=== PATIENT | female | born 2000 | race Caucasian/White ===

== ENCOUNTER 2019-01-19 17:23 | Inpatient (IN) | payer MEDICAID ==
[~2019-01-19] VITALS: Ht 160 cm; Wt 87.1 kg
[2019-01-19] MEDS ORDERED: LR 1,000 ML IV SCH (18:17)
[2019-01-19] MEDS ORDERED: OXYTOCIN/0.9 % SODIUM CHLORIDE 1,000 ML IV SCH (18:17)
[2019-01-19 18:27] VITALS: BP_SYST 127
[2019-01-19] MEDS ORDERED: AMPICILLIN SODIUM 2 GM in NS 100 ML IV ONE (18:30)
[2019-01-19] MEDS ORDERED: NALBUPHINE HCL 10 MG/ML AMP IM PRN (18:30)
[2019-01-19] MEDS ORDERED: NALBUPHINE HCL 10 MG/ML AMP IVP PRN (18:30)
[2019-01-19 19:32] LABS: BASOPHILS % (AUTO) 0.3 % (0.0-2.0); EOSINOPHILS % (AUTO) 0.5 % (0.0-4.0); HEMATOCRIT 31.3 % (36-48); HEMOGLOBIN 10.4 g/dL (12.0-16.0); LYMPHOCYTES % (AUTO) 18.2 % (20.5-51.5); MEAN CORPUSCULAR HEMOGLOBIN 27 pg (27-31); MEAN CORPUSCULAR HGB CONC 33 % (32-36); MEAN CORPUSCULAR VOLUME 81 fL (79.0-98.0); MONOCYTES % (AUTO) 9.2 % (1.7-9.3); NEUTROPHILS # (AUTO) 7.4 K/uL (1.8-7.7); NEUTROPHILS % (AUTO) 71.8 % (40.0-70.0); PLATELET COUNT (AUTO) 213 K/uL (130-430); RED BLOOD CELL COUNT(AUTO) 3.85 MIL/uL (4.2-6.2); WHITE BLOOD COUNT (AUTO) 10.3 K/uL (4.5-11.0)
[2019-01-19 19:33] LABS: EOSINOPHILS # (AUTO) 0.1 K/uL (0.0-0.4); LYMPHOCYTES # (AUTO) 1.9 K/uL (1.0-5.5); MONOCYTES # (AUTO) 0.9 K/uL (0.0-1.0)
[2019-01-19] MEDS ORDERED: ROPIVACAINE HCL/PF 0.2% 200 ML ONE (22:36)
[2019-01-19] MEDS ORDERED: fentaNYL CITRATE/PF 100 MCG/2 ML AMP ONE (22:36)
[2019-01-19] MEDS ORDERED: LR 500 ML IV ONE (23:27)
[2019-01-19] MEDS ORDERED: FENT2mCg/mL-ROPIVA0.2%/NS EPID 200 ML EP SCH (23:30)
[2019-01-20] MEDS ORDERED: DIPHENHYDRAMINE INJ 50 MG/ML VIAL ONE (00:14)
[2019-01-20] MEDS ORDERED: DIPHENHYDRAMINE INJ 50 MG/ML VIAL IVP ONE (00:15)
[2019-01-20] MEDS: AMPICILLIN SODIUM 1 GM in NS 50 ML IV SCH ×6 (04:00→16:00)
[2019-01-20] MEDS ORDERED: ROPIVACAINE HCL/PF 0.2% 100 ML ONE (12:32)
[2019-01-20] MEDS ORDERED: fentaNYL CITRATE/PF 100 MCG/2 ML AMP ONE (12:58)
[2019-01-20] MEDS ORDERED: METHYLERGONOVINE MALEATE 0.2 MG/ML AMP ONE (18:44)
[2019-01-20] MEDS ORDERED: LANOLIN 7 GM OINT. TP PRN (18:45)
[2019-01-20] MEDS ORDERED: DERMOPLAST SPRAY TP PRN (18:45)
[2019-01-20] MEDS ORDERED: HYDROcodone/ACETAMIN 5-325 MG TAB (NORCO/ VICODIN) PO PRN ×2 (18:45)
[2019-01-20] MEDS ORDERED: OXYTOCIN/0.9 % SODIUM CHLORIDE 1,000 ML IV ONE (18:45)
[2019-01-20] MEDS ORDERED: OXYTOCIN/0.9 % SODIUM CHLORIDE 1,000 ML IV SCH (18:45)
[2019-01-20] MEDS ORDERED: ANUSOL 1 EA SUPP.RECT (PREPARATION H) RC PRN (18:45)
[2019-01-20] MEDS ORDERED: HYDROCORTISONE 0.5%, 28.35 GM TOPICAL CREAM TP PRN (18:45)
[2019-01-20] MEDS ORDERED: WITCH HAZEL LEAF 1 MED.PAD MED.PAD TP PRN (18:45)
[2019-01-20] MEDS ORDERED: METHYLERGONOVINE MALEATE 0.2 MG TABLET PO PRN (18:45)
[2019-01-20] MEDS ORDERED: TEMAZEPAM 15 MG CAPSULE PO PRN (21:00)
[2019-01-20] MEDS: DOCUSATE SODIUM 100 MG CAPSULE PO PRN (23:57)
[2019-01-20] MEDS: IBUPROFEN 600 MG TABLET PO PRN (23:58)
[2019-01-21 06:03] LABS: BASOPHILS # (AUTO) 0.1 K/uL (0.0-0.2); BASOPHILS % (AUTO) 0.4 % (0.0-2.0); EOSINOPHILS # (AUTO) 0.1 K/uL (0.0-0.4); EOSINOPHILS % (AUTO) 0.3 % (0.0-4.0); HEMATOCRIT 28.1 % (36-48); HEMOGLOBIN 9.2 g/dL (12.0-16.0); LYMPHOCYTES # (AUTO) 1.8 K/uL (1.0-5.5); MEAN CORPUSCULAR HEMOGLOBIN 27 pg (27-31); MEAN CORPUSCULAR HGB CONC 33 % (32-36); MEAN CORPUSCULAR VOLUME 81 fL (79.0-98.0); MONOCYTES # (AUTO) 1.9 K/uL (0.0-1.0); MONOCYTES % (AUTO) 9.4 % (1.7-9.3); NEUTROPHILS % (AUTO) 80.9 % (40.0-70.0); PLATELET COUNT (AUTO) 183 K/uL (130-430); RED BLOOD CELL COUNT(AUTO) 3.48 MIL/uL (4.2-6.2); WHITE BLOOD COUNT (AUTO) 19.8 K/uL (4.5-11.0)
[2019-01-21] MEDS: IBUPROFEN 600 MG TABLET PO PRN ×3 (06:31→17:55)
[2019-01-21] MEDS: DOCUSATE SODIUM 100 MG CAPSULE PO PRN ×2 (06:31→09:10)
[2019-01-21] MEDS ORDERED: MINERAL OIL 30 ML UDC PO ONE (15:33)
[2019-01-21] MEDS ORDERED: LIDOCAINE PF 1% 30ML(POUR BTL) INJ ONE (15:33)
[2019-01-21] MEDS ORDERED: BUPIVACAINE /PF 0.5% 30 ML VIAL INJ ONE (15:35)
== END 2019-01-21 19:25 | disposition home or self-care (01) | DRG 560 ==
LOC: OBSVTOIN 17:23 → SPU 17:23
PROVIDERS: ADMIT Obstetrics & Gynecology; ATTEND Obstetrics & Gynecology
PROC: 10E0XZZ Delivery of Products of Conception, External Approach (ICD-10-PCS; principal; 2019-01-20)
PROC: 0KQM0ZZ Repair Perineum Muscle, Open Approach (ICD-10-PCS; 2019-01-20)
PROC: 3E0R3BZ Introduction of Anesthetic Agent into Spinal Canal, Percutaneous Approach (ICD-10-PCS; 2019-01-20)
PROC: 00HU33Z Insertion of Infusion Device into Spinal Canal, Percutaneous Approach (ICD-10-PCS; 2019-01-20)
DX: O99.824 Streptococcus B carrier state complicating childbirth (principal); Z37.0 Single live birth; O70.1 Second degree perineal laceration during delivery; Z3A.40 40 weeks gestation of pregnancy
CPT/HCPCS: 36415; 81002-TC; 85025; 86592; 86886; 86900; 86901; 94760; J0290; J1200; J2001; J2210; J2300; J2590; J2795; J3010; J3490; J7120